=== PATIENT | female | born 1980 | race Caucasian/White ===

== ENCOUNTER → 2024-01-28 10:45 | Outpatient (REF) | payer OTHER, SELFPAY | LOC: MRI 3T 10:45 | PROVIDERS: ATTENDING PHYSICIAN Physician Assistant Medical; FAMILY PHYSICIAN Family Medicine | DX: G43.011 Migraine without aura, intractable, with status migrainosus (principal) | CPT/HCPCS: 70544 ==

== ENCOUNTER → 2024-03-19 10:09 | Outpatient (REF) | payer OTHER, SELFPAY | LOC: HWRAD 10:09 | PROVIDERS: ATTENDING PHYSICIAN Student in an Organized Health Care Education/Training Program; FAMILY PHYSICIAN Family Medicine | DX: I77.74 Dissection of vertebral artery (principal) | CPT/HCPCS: 70496; 70498; Q9967 ==